=== PATIENT | male | born 1975 | race African-American/Black ===

== ENCOUNTER 2023-08-20 11:01 | Emergency (ER) | payer SELFPAY ==
[~2023-08-20] VITALS: Ht 182.9 cm; Wt 91.0 kg
[2023-08-20 11:09] VITALS: O2SAT 99
[2023-08-20] MEDS ORDERED: KETOROLAC 60MG/2ML VIAL IM ONE (12:45)
[2023-08-20] MEDS ORDERED: TETANUS, DIPHTHERIA, PERTUSSIS VAC/PF 0.5ML (>10YR OLD) IM ONE (13:15)
[2023-08-20 13:17] VITALS: BP 138/56; PULSE 82; RESP 16; TEMP 98.2
== END 2023-08-20 13:18 | disposition home or self-care (01) ==
LOC: ER 11:01
DX: S00.03XA Contusion of scalp, initial encounter (principal); I10 Essential (primary) hypertension; X58.XXXA Exposure to other specified factors, initial encounter; Y93.89 Activity, other specified; Y92.89 Other specified places as the place of occurrence of the external cause; Y99.8 Other external cause status
CPT/HCPCS: 71045; 70450; 90715; 90471; 96372; 99285; J1885; Z7610